=== PATIENT | male | born 1980 | race African-American/Black ===

== ENCOUNTER 2018-04-02 20:55 | Emergency (ER) | payer OTHER ==
[~2018-04-02] VITALS: Ht 185.4 cm; Wt 82.6 kg
[2018-04-02 21:01] VITALS: Ht 185.4 cm; Wt 82.6 kg
[2018-04-02 22:40] LABS: CARBON DIOXIDE 23.7 mmol/L (21-32); CHLORIDE SERUM 104 mmol/L (98-107); CREATININE SERUM 1.2 mg/dL (0.7-1.3); GFR1 > 60 mL/min; GLUCOSE SERUM 125 mg/dL (74-106); SODIUM SERUM 140 mmol/L (136-145)
[2018-04-02 22:45] LABS: ALBUMIN 4.1 g/dL (3.4-5.0); ALKALINE PHOSPHATASE 53 U/L (46-116); ALT/SGPT 12 U/L (16-63); AST/SGOT 18 U/L (15-37); BILIRUBIN TOTAL 1.28 mg/dL (0.20-1.00); LIPASE 106 IU/L (73-393); TOTAL PROTEIN, SERUM 7.8 g/dL (6.4-8.2)
[2018-04-02 22:51] LABS: BASOPHIL % 0.4 % (0-2); PLATELET COUNT 190 x10^3mcL (130-400); RED CELL DISTRIBUTION WIDTH 13.8 % (11.5-14.5)
[2018-04-03 00:05] VITALS: BP 122/79
== END 2018-04-02 23:54 | disposition home or self-care (01) ==
LOC: ED 20:55
PROVIDERS: Emergency Medicine
DX: R11.10 Vomiting, unspecified (principal); R10.84 Generalized abdominal pain; M79.1 Myalgia; Z86.2 Personal history of diseases of the blood and blood-forming organs and certain disorders involving the immune mechanism
CPT/HCPCS: J1200; J1885; J2270; J2765; J7030

== ENCOUNTER 2018-08-31 17:22 | Emergency (ER) | payer OTHER ==
[~2018-08-31] VITALS: Ht 185.4 cm; Wt 83.9 kg
[2018-08-31 17:37] VITALS: Ht 185.4 cm; Wt 83.9 kg
[2018-08-31 21:25] LABS: UA SPECIFIC GRAVITY >=1.030 (1.005-1.035); microscopic required? YES; urine erythrocyte TRACE (NEGATIVE)
[2018-08-31 21:32] LABS: BASOPHIL % 1.8 % (0-2); PLATELET COUNT 237 x10^3mcL (130-400); RED CELL DISTRIBUTION WIDTH 13.4 % (11.5-14.5)
[2018-08-31 21:39] LABS: CALCIUM 9.3 mg/dL (8.5-10.1); CARBON DIOXIDE 25.9 mmol/L (21-32); CHLORIDE SERUM 100 mmol/L (98-107); CREATININE SERUM 1.1 mg/dL (0.7-1.3); GFR1 > 60 mL/min; GLUCOSE SERUM 74 mg/dL (74-106); POTASSIUM SERUM 3.3 mmol/L (3.5-5.1); SODIUM SERUM 137 mmol/L (136-145)
[2018-08-31 21:44] LABS: ALBUMIN 4.3 g/dL (3.4-5.0); ALKALINE PHOSPHATASE 65 U/L (46-116); ALT/SGPT 21 U/L (16-63); AST/SGOT 17 U/L (15-37); BILIRUBIN TOTAL 1.5 mg/dL (0.20-1.00)
[2018-08-31 21:45] LABS: TOTAL PROTEIN, SERUM 8.6 g/dL (6.4-8.2)
[2018-08-31 22:58] VITALS: BP 130/71
== END 2018-08-31 22:58 | disposition home or self-care (01) ==
LOC: ED 17:22
PROVIDERS: Emergency Medicine
DX: N39.0 Urinary tract infection, site not specified (principal); Z86.2 Personal history of diseases of the blood and blood-forming organs and certain disorders involving the immune mechanism
CPT/HCPCS: 87804; J0696; J1885; J2405; J7030

== ENCOUNTER 2018-12-13 13:32 | Emergency (ER) | payer OTHER ==
[~2018-12-13] VITALS: Ht 185.4 cm; Wt 82.6 kg
[2018-12-13 13:36] VITALS: Ht 185.4 cm; Wt 82.6 kg
[2018-12-13 14:58] LABS: BASOPHIL % 0.8 % (0-2); PLATELET COUNT 187 x10^3mcL (130-400); RED CELL DISTRIBUTION WIDTH 14.2 % (11.5-14.5)
[2018-12-13 15:13] LABS: CALCIUM 8.9 mg/dL (8.5-10.1); CARBON DIOXIDE 22.9 mmol/L (21-32); CHLORIDE SERUM 104 mmol/L (98-107); CREATININE SERUM 1.2 mg/dL (0.7-1.3); GFR1 > 60 mL/min; GLUCOSE SERUM 125 mg/dL (74-106); POTASSIUM SERUM 3.8 mmol/L (3.5-5.1); SODIUM SERUM 139 mmol/L (136-145)
[2018-12-13 15:14] LABS: ALBUMIN 3.8 g/dL (3.4-5.0); ALKALINE PHOSPHATASE 54 U/L (46-116); ALT/SGPT 19 U/L (16-63); AST/SGOT 15 U/L (15-37); BILIRUBIN TOTAL 0.9 mg/dL (0.20-1.00); LIPASE 104 IU/L (73-393); TOTAL PROTEIN, SERUM 7.7 g/dL (6.4-8.2)
[2018-12-13 16:41] VITALS: BP 151/77
== END 2018-12-13 16:41 | disposition home or self-care (01) ==
LOC: ED 13:32
PROVIDERS: Emergency Medicine
DX: R11.2 Nausea with vomiting, unspecified (principal); R19.7 Diarrhea, unspecified; F12.90 Cannabis use, unspecified, uncomplicated; D57.1 Sickle-cell disease without crisis
CPT/HCPCS: J2270; J2405; J3490; J7030; Q0092

== ENCOUNTER 2018-12-16 00:33 | Observation (INO) | payer OTHER ==
[~2018-12-16] VITALS: Ht 185.4 cm; Wt 66.9 kg
[2018-12-16 00:47] VITALS: Ht 185.4 cm; Wt 66.9 kg
--- NOTE | 2018-12-16 00:57 | NUR ---
PT HAD 200 ML OF EMESIS NOTED TO EMESIS BAG.
--- NOTE | 2018-12-16 01:01 | NUR ---
PT STS THAT HE HAS BEEN VOMITING FOR THREE DAYS. PT WAS HERE 2 DAYS AGO WITH SAME ISSUE. PT STS THAT HE DID SOME "POT" YESTERDAY BUT NONE TODAY. PT STS THAT HE IS HAVING PAIN IN HIS LLQ AND IT FEELS LIKE A PRESSURE AND ACHE. PT HAS BEEN HAVING BODY CHILLS AND THAT HE FELT WARM. PT IS TOSSING AND TURNING IN BED STATING THAT HE JUST DOES NOT FEEL WELL. NO TEMP NOTED. VSS. WILL CONTINUE TO MONITOR. PT IS ALERT AND ORIENTED, SPEAKING IN CLEAR AND FULL SENTENCES.
--- NOTE | 2018-12-16 01:05 | NUR ---
PT STS THAT HE DOES HAVE SICKLE CELL ANEMIA BUT THAT HE HAS NOT HAD A CRISIS IN YEARS. DR. FELDER NOTIFIED.
--- NOTE | 2018-12-16 02:03 | NUR ---
PT STS THAT HE IS STILL IN PAIN. DR. KEARNEY INFORMED.
[2018-12-16 02:04] LABS: BASOPHIL % 0.6 % (0-2); PLATELET COUNT 238 x10^3mcL (130-400); RED CELL DISTRIBUTION WIDTH 12.9 % (11.5-14.5)
--- NOTE | 2018-12-16 02:05 | NUR ---
PT TAKEN TO XRAY.
[2018-12-16 02:22] LABS: CALCIUM 9.1 mg/dL (8.5-10.1); CARBON DIOXIDE 22.4 mmol/L (21-32); CREATININE SERUM 1.6 mg/dL (0.7-1.3)
[2018-12-16 02:29] LABS: ALBUMIN 3.8 g/dL (3.4-5.0); BILIRUBIN TOTAL 1.9 mg/dL (0.20-1.00)
[2018-12-16 02:37] LABS: AMPHETAMINE QUAL UR NONE DETECTED (See below)
--- NOTE | 2018-12-16 03:22 | NUR ---
PT IS IN POSITION OF COMFORT. RESP E/U. VSS. MEDICATED ORDERED. WILL CONTINUE TO MONITOR.
--- NOTE | 2018-12-16 04:04 | NUR ---
ULTRASOUND AT BEDSIDE.
[2018-12-16 04:36] LABS: MAGNESIUM 1.8 mg/dL (1.8-2.4); PHOSPHOROUS 1.4 mg/dL (2.5-4.9)
--- NOTE | 2018-12-16 05:05 | NUR ---
REPORT GIVEN TO WESTLEY BALDWIN TO ASSUME CARE OF PT.
[2018-12-16 05:35] VITALS: BP 115/80
--- NOTE | 2018-12-16 06:18 | NUR ---
RECIEVED PT VIA [facility] FROM ER. ADMIT FOR ABD PAIN, VOMITING, AND HYPOKALEMIA. AOX4. MED SURG. PULSES PALPABLE. NO EDEMA. BOWEL SOUNDS ACTIVE. C/O N/V. VOIDS FREELY. AMBULATORY. SKIN INTACT. C/O ABD PAIN 9/10 TO BLQ. IV TO RAC, PATENT AND INFUSING. ORIENTED TO ROOM. BED IN LOWEST POSITION, 2 SIDE RAILS UP, CALL LIGHT IN REACH. INSTRUCTED TO CALL FOR ASSISTANCE.
--- NOTE | 2018-12-16 07:05 | NUR ---
RECIEVED PT FROM NIGHT NURSE. PT IS LAYING DOWN IN BED WITH EYES OPEN. ULTRASOUND AT BEDSIDE. PT LOOKS TO BE IN NO ACUTE DISTRESS AT THIS TIME. RESRPIATIONS EVEN AND UNLABORED ON ROOM AIR. IV SITE PATENT WITH NO SIGNS OF ERYTHEMA OR SWELLING WITH IV FLUIDS INFUSING. PT DENIES ANY NAUSEA AT THIS TIME. BED IN LOWEST POSITION. CALL LIGHT WITHIN REACH. WILL CONTINUE TO MONITOR.
[2018-12-16 08:12] VITALS: BP 132/80
[2018-12-16 11:27] LABS: microscopic required? YES; urine erythrocyte 1+ (NEGATIVE)
[2018-12-16 11:51] VITALS: BP 134/93
[2018-12-16 16:32] VITALS: BP 126/84
--- NOTE | 2018-12-16 16:35 | NUR ---
PT HAD A BOWEL MOVEMENT AND ACCORDING TO PT, THE BM WAS SMALL. PT IS NOW EXPERIENCING NAUSEA AND STATES FEELING ABD PAIN 03/14. PT HAD AN EPISODE OF VOMITING. INCREASED THE HOB AND WILL MEDICATE ACCORDING TO EMAR.
--- NOTE | 2018-12-16 17:50 | NUR ---
PT COMPLAINING OF CONTINUED NAUSEA AND VOMITING. PT REQUESTING STRONGER MEDICATION FOR THE NAUSEA.
--- NOTE | 2018-12-16 18:20 | NUR ---
PT FOUND SITTING ON THE TOILET AND STATES THAT HE FEELS LIKE HE NEEDS TO HAVE A BM AND IS FEELING NAUSATED. PT STATES THAT HE FEELS LIGHT HEADED. VITAL SIGNS TAKEN AND BP WAS 161/90. HELPED PT BACK TO BED USING A WHEELCHAIR. FURTHER MEDICATE PT FROM NAUSEA. MADE PT COMFORTABLE IN BED WITH HOB UP AND EMESIS BAG AT BEDSIDE. PT REQUESTING TO HAVE FAMILY MEMBER AT BEDSIDE FOR SUPPORT. UNABLE TO GET AHOLD OF FAMILY AT THIS TIME. DECREASED STIMULI TO PT ROOM. CALL LIGHT WITHIN REACH. WILL CONTINUE TO MONITOR.
--- NOTE | 2018-12-16 19:01 | NUR ---
PT IS LAYING DOWN IN BED IN LATERAL POSITIIONL WITH HOB UP. PT CONTINUES TO COMPLAIN OF NAUSEA AND ABD PAIN. FAMILY MEMBER AT BEDSIDE. IV SITE PATENT WITH NO SIGNS OF ERYTHEMA OR SWELLING. BED IN LOWEST POSITION. CALL LIGHT WITHIN REACH. WILL ENDORSE TO ONCOMING SHIFT ABOUT PAIN AND NAUSEA.
--- NOTE | 2018-12-16 19:10 | NUR ---
RECEIVED PT FROM PREVIOUS SHIFT NURSE. PT AOX4. MED SURG PT, DENIES CP/PRESSURE. DENIES SOB/DIFFICULTY BREATHING, ON RA. IV TO RAC, INTACT AND PATENT. BED IN LOWEST POSITION. CALL LIGHT WITHIN REACH. WILL CONTINUE TO MONITOR.
[2018-12-16 21:12] VITALS: BP 130/73
--- NOTE | 2018-12-17 02:30 | NUR ---
PT RESTING IN BED. RR EVEN AND UNLABORED. IN NO ACUTE DISTRESS. BED IN LOWEST POSITION. CALL LIGHT WITHIN REACH. WILL CONTINUE TO MONITOR.
[2018-12-17 05:49] VITALS: BP 137/88
[2018-12-17 06:29] LABS: BASOPHIL % 0.5 % (0-2); PLATELET COUNT 175 x10^3mcL (130-400); RED CELL DISTRIBUTION WIDTH 14.1 % (11.5-14.5)
[2018-12-17 06:42] LABS: CALCIUM 8.3 mg/dL (8.5-10.1); CARBON DIOXIDE 26.7 mmol/L (21-32); CHLORIDE SERUM 105 mmol/L (98-107); CREATININE SERUM 1.2 mg/dL (0.7-1.3); GFR1 > 60 mL/min; GLUCOSE SERUM 110 mg/dL (74-106); MAGNESIUM 1.9 mg/dL (1.8-2.4); PHOSPHOROUS 3.9 mg/dL (2.5-4.9); SODIUM SERUM 141 mmol/L (136-145)
[2018-12-17 06:46] LABS: POTASSIUM SERUM 2.9 mmol/L (3.5-5.1)
--- NOTE | 2018-12-17 06:48 | NUR ---
K 2.9, DR. DE LA O MADE AWARE.
--- NOTE | 2018-12-17 07:13 | NUR ---
RECEIVED PT FROM SHIFT NURSE A/OX4 LYING IN BED. NO ACUTE DISTRESS NOTED. NO C/O OF ABD PAIN. IV INTACT AND PATENT. BED IN LOW POSITION. CALL LIGHT WITHIN REACH. WILL CONTINUE TO MONITOR.
[2018-12-17 09:47] VITALS: BP 128/88
--- NOTE | 2018-12-17 10:17 | NUR ---
PT SITTING UP IN BED TALKING ON THE PHONE. NO ACUTE DISTRESS NOTED. BED IN LOW POSITION. CALL LIGHT WITHIN REACH. WILL CONITNUE TO MONITOR.
--- NOTE | 2018-12-17 10:35 | NUR ---
PT C/O OF NAUSEA. GAVE ZOFRAN ORDERED. WILL CONTIUE TO MONITOR.
--- NOTE | 2018-12-17 11:15 | NUR ---
PT C/O OF ABD PAIN 05/14. GAVE TORADOL ORDERED. WILL CONTINUE TO MONITOR.
--- NOTE | 2018-12-17 12:06 | NUR ---
PT WAS YELLING AT DR. DE LA O WITH PROFANITY. PT REFUSED TO HAVE IV REMOVED. PT LEFT HOSPITAL AMA ACCOMPANIED BY SECURITY. PER SECURITY IV REMOVED AT ED. DR. JUAN M BOJORQUEZ.
[2018-12-17 12:52] VITALS: BP 128/88
--- NOTE | 2018-12-17 14:09 | NUR ---
1. Recommend continuing regular diet. 2.Recommend Enusre Enlive BID for poor PO
--- NOTE | 2018-12-17 14:09 | NUR ---
Initial Nutrition Assessment- 235/B CIRO SANCHEZ HR IA Dx: abdominal pain, vomiting, hypokalemia PMHx: HIV PSHx: None Labs: BG 110H, K 2.9L Meds: zofran Diet: Regular (12/17-lunch), CLD (12/16) PO Intake: (12/16) 60% Ht:185.42 cm (73") Wt: 66.8 kg (147#) BMI: 19.5 kg/m2 IBW: 184# (84 kg) %IBW: 80 UBW: unable to access Age: 38/M Food Allergies: NKFA Skin: intact Tang: 22 Edema: none GI: last BM:12/16 Trigger: N/V/D >3d Per H&P, Pt is 38yo M with PMH of HIV was admitted with cc of nonbloody, nonbilious vomiting x 4 days. Pt stated that since he started experiencing nausea/vomiting and 10/10 diffused dull abd pain, nonradiating, no alleviating or aggravating factors. RDN visit(12/17): pt was in pain and did not want to answer any questions. Per RN Aleksander, pt has poor oral intake due to nausea. Pt does not have any V/D/C at this time. Per progress note (12/16), pt has acute gastroenteritis, likely viral in nature. Problem with: N: yes V: no D: no C: no Problems with: Chewing/Swallowing: no Current appetite: poor Recent wt change: unable to access Vitamin/Supplement use: unable to access Special diet at home: unable to access Physical activity: unable to access Education: Diet education not appropriate at this time as patient was in severe pain. Estimated Nutritional Needs Based on actual body weight 66.8 kg Energy: 2273-3625 kcal/d (25-30 kcal/kg-maintenance) Protein: 66.8-80 g/d (1.0-1.2 g/kg)-maintenance and preservation of lean body mass Fluid: 1332-6130 ml/d (1 ml/kcal-fluid balance) or per doctor Nutrition Diagnosis 1. Inadequate oral intake related to poor appetite as evidenced by documented PO of <75% Intervention 1. Recommend continuing regular diet. 2.Recommend Enusre Enlive BID for poor PO Monitor/Evaluate Goal: PO intake at least 75% of estimated needs Monitor: PO intake, Labs, GI function F/U in 3-5 days as moderate risk
== END 2018-12-17 15:16 | disposition left against medical advice (07) | DRG 249 ==
LOC: ED 00:33 → MU 04:36
PROVIDERS: Emergency Medicine; ADMIT Internal Medicine
DX: A08.4 Viral intestinal infection, unspecified (principal); N17.0 Acute kidney failure with tubular necrosis; E87.6 Hypokalemia; E83.39 Other disorders of phosphorus metabolism; K59.00 Constipation, unspecified; Z68.24 Body mass index [BMI] 24.0-24.9, adult; Z53.29 Procedure and treatment not carried out because of patient's decision for other reasons
CPT/HCPCS: G0378; J0500; J1885; J2270; J2405; J2550; J3480; J7030; J7042; J7050; Q0092

== ENCOUNTER 2019-09-23 20:40 | Emergency (ER) | payer OTHER ==
[~2019-09-23] VITALS: Ht 182.9 cm; Wt 89.8 kg
[2019-09-23 20:46] VITALS: Ht 182.9 cm; Wt 89.8 kg
[2019-09-23 22:10] VITALS: BP 146/87
[2019-09-25 13:05] LABS: RAPID PLASMA REAGIN Reactive (Non Reactive)
== END 2019-09-23 22:10 | disposition home or self-care (01) ==
LOC: ED 20:40
PROVIDERS: Emergency Medicine
DX: A64 Unspecified sexually transmitted disease (principal); Z86.2 Personal history of diseases of the blood and blood-forming organs and certain disorders involving the immune mechanism
CPT/HCPCS: 36415; J0561

== ENCOUNTER 2020-04-12 20:04 | Emergency (ER) | payer OTHER ==
[~2020-04-12] VITALS: Ht 185.4 cm; Wt 86.2 kg
[2020-04-12 20:16] VITALS: Ht 185.4 cm; Wt 86.2 kg
[2020-04-12 21:33] LABS: CALCIUM 9.4 mg/dL (8.5-10.1); CARBON DIOXIDE 26.3 mmol/L (21-32); CHLORIDE SERUM 103 mmol/L (98-107); CREATININE SERUM 1.4 mg/dL (0.7-1.3); GFR1 > 60 mL/min; GLUCOSE SERUM 102 mg/dL (74-106); POTASSIUM SERUM 3.1 mmol/L (3.5-5.1); SODIUM SERUM 138 mmol/L (136-145)
[2020-04-12 21:37] LABS: ALKALINE PHOSPHATASE 59 U/L (46-116); ALT/SGPT 23 U/L (16-63); AST/SGOT 20 U/L (15-37); BILIRUBIN TOTAL 1.3 mg/dL (0.20-1.00); LIPASE 91 IU/L (73-393)
[2020-04-12 21:39] LABS: AMYLASE 189 U/L (25-115); BASOPHIL % 0.4 % (0-2); PLATELET COUNT 221 x10^3mcL (130-400); RED CELL DISTRIBUTION WIDTH 13.6 % (11.5-14.5)
[2020-04-13 00:54] VITALS: BP 95/63
== END 2020-04-13 00:54 | disposition home or self-care (01) ==
LOC: ED 20:04
PROVIDERS: Emergency Medicine
DX: K29.20 Alcoholic gastritis without bleeding (principal)
CPT/HCPCS: G0480; J0780; J1885; J2405; J7030

== ENCOUNTER 2020-04-14 15:35 | Emergency (ER) | payer OTHER ==
[~2020-04-14] VITALS: Ht 185.4 cm; Wt 86.2 kg
[2020-04-14 15:54] VITALS: Ht 185.4 cm; Wt 86.2 kg
[2020-04-14 18:25] LABS: BASOPHIL % 0.4 % (0-2); PLATELET COUNT 191 x10^3mcL (130-400); RED CELL DISTRIBUTION WIDTH 13.4 % (11.5-14.5)
[2020-04-14 18:35] LABS: CALCIUM 8.6 mg/dL (8.5-10.1); CARBON DIOXIDE 30.7 mmol/L (21-32); CHLORIDE SERUM 110 mmol/L (98-107); CREATININE SERUM 1.3 mg/dL (0.7-1.3); GFR1 > 60 mL/min; GLUCOSE SERUM 108 mg/dL (74-106); POTASSIUM SERUM 3.3 mmol/L (3.5-5.1); SODIUM SERUM 138 mmol/L (136-145)
[2020-04-14 18:43] LABS: ALBUMIN 3.5 g/dL (3.4-5.0); ALKALINE PHOSPHATASE 44 U/L (46-116); ALT/SGPT 21 U/L (16-63); AST/SGOT 17 U/L (15-37); BILIRUBIN TOTAL 1.5 mg/dL (0.20-1.00); LIPASE 87 IU/L (73-393)
[2020-04-14 20:15] VITALS: BP 129/61
== END 2020-04-14 20:16 | disposition home or self-care (01) ==
LOC: ED 15:35
PROVIDERS: Emergency Medicine
DX: R11.10 Vomiting, unspecified (principal); R10.13 Epigastric pain; Z86.2 Personal history of diseases of the blood and blood-forming organs and certain disorders involving the immune mechanism
CPT/HCPCS: J2270; J2405; J7030

== ENCOUNTER 2020-06-29 16:27 | Emergency (ER) | payer OTHER ==
[~2020-06-29] VITALS: Ht 185.4 cm; Wt 83.9 kg
[2020-06-29 17:14] VITALS: Ht 185.4 cm; Wt 83.9 kg
[2020-06-29 17:45] LABS: BASOPHIL % 0.3 % (0-2); PLATELET COUNT 211 x10^3mcL (130-400)
[2020-06-29 18:02] LABS: CALCIUM 9.3 mg/dL (8.5-10.1); CARBON DIOXIDE 26.3 mmol/L (21-32); CREATININE SERUM 1.5 mg/dL (0.7-1.3); POTASSIUM SERUM 3.5 mmol/L (3.5-5.1)
[2020-06-29 18:10] LABS: ALBUMIN 4.3 g/dL (3.4-5.0); BILIRUBIN TOTAL 1.2 mg/dL (0.20-1.00); TOTAL PROTEIN, SERUM 7.4 g/dL (6.4-8.2)
[2020-06-29 18:23] LABS: HDL CHOLESTEROL 40 mg/dL (40-60)
[2020-06-29 18:27] LABS: CHOLESTEROL 121 mg/dL (<200)
[2020-06-29 19:59] LABS: microscopic required? YES; urine erythrocyte TRACE (NEGATIVE)
[2020-06-29 20:38] VITALS: BP 100/59
[2020-06-29 20:45] LABS: AMPHETAMINE QUAL UR NONE DETECTED (See below)
== END 2020-06-29 20:38 | disposition home or self-care (01) ==
LOC: ED 16:27
PROVIDERS: Emergency Medicine
DX: N13.2 Hydronephrosis with renal and ureteral calculous obstruction (principal); D57.1 Sickle-cell disease without crisis; F12.20 Cannabis dependence, uncomplicated; Z86.2 Personal history of diseases of the blood and blood-forming organs and certain disorders involving the immune mechanism
CPT/HCPCS: 83880; J1885; J2405; J3010

== ENCOUNTER 2020-08-15 07:35 | Emergency (ER) | payer OTHER ==
[~2020-08-15] VITALS: Ht 185.4 cm; Wt 81.6 kg
[2020-08-15 07:55] VITALS: Ht 185.4 cm; Wt 81.6 kg
[2020-08-15 10:28] LABS: CALCIUM 8.6 mg/dL (8.5-10.1); CARBON DIOXIDE 28.1 mmol/L (21-32); CHLORIDE SERUM 104 mmol/L (98-107); CREATININE SERUM 1.1 mg/dL (0.7-1.3); GFR1 > 60 mL/min; GLUCOSE SERUM 130 mg/dL (74-106); SODIUM SERUM 139 mmol/L (136-145)
[2020-08-15 10:35] LABS: BASOPHIL % 0.9 % (0.2-1.5); PLATELET COUNT 166 x10^3mcL (152-348)
[2020-08-15 11:42] VITALS: BP 104/60
== END 2020-08-15 11:42 | disposition home or self-care (01) ==
LOC: ED 07:35
PROVIDERS: Emergency Medicine
DX: R11.10 Vomiting, unspecified (principal)
CPT/HCPCS: J1630; J1885; J7030

== ENCOUNTER 2020-09-04 12:20 | Emergency (ER) | payer OTHER ==
[~2020-09-04] VITALS: Ht 185.4 cm; Wt 90.7 kg
[2020-09-04 12:30] VITALS: Ht 185.4 cm; Wt 90.7 kg
[2020-09-04 13:14] LABS: BASOPHIL % 0.5 % (0.2-1.5); PLATELET COUNT 212 x10^3mcL (152-348); RED CELL DISTRIBUTION WIDTH 13.6 % (12.1-16.2)
[2020-09-04 13:29] LABS: CALCIUM 9.2 mg/dL (8.5-10.1); CARBON DIOXIDE 28.5 mmol/L (21-32); CREATININE SERUM 1.4 mg/dL (0.7-1.3); POTASSIUM SERUM 4.8 mmol/L (3.5-5.1)
[2020-09-04 13:34] LABS: ALBUMIN 4.2 g/dL (3.4-5.0); BILIRUBIN TOTAL 0.86 mg/dL (0.20-1.00)
[2020-09-04 13:35] LABS: TOTAL PROTEIN, SERUM 8.3 g/dL (6.4-8.2)
[2020-09-04 17:43] VITALS: BP 115/70
== END 2020-09-04 17:43 | disposition home or self-care (01) ==
LOC: ED 12:20
PROVIDERS: Specialist
DX: N23 Unspecified renal colic (principal)
CPT/HCPCS: J1885; J2270; J2405; J3010; J7030